=== PATIENT | female | born 1990 ===

== ENCOUNTER 2023-01-13 14:01 | Outpatient (OUT) | payer BC, SELFPAY ==
--- NOTE | 2023-01-13 | XR_ITS ---
The [address] [address] Patient Name: CLEMENTE HOLLAND MRN: [id number] date: 1990 Sex: F Assigned Patient Location: [facility] Current Patient Location: Accession/Order Number: [id number] Exam Date: 01/13/2023 14:28 Report Date: 01/14/2023 05:24 At the request of: GREGORIO BARR Procedure: XR foot JAMES min 3V EXAMINATION: XR foot JAMES min 3V HISTORY: LEFT FOOT PAIN COMPARISON: No relevant comparison available. FINDINGS: RIGHT FINDINGS: BONES: Normal. No significant arthropathy or acute abnormality. SOFT TISSUES: Negative. No visible soft tissue swelling. OTHER: Negative. LEFT FINDINGS: BONES: Normal. No significant arthropathy or acute abnormality. SOFT TISSUES: Negative. No visible soft tissue swelling. OTHER: Negative. IMPRESSION: RIGHT CONCLUSION: No acute abnormality LEFT CONCLUSION: No acute abnormality Electronically authenticated by: CHAD LUU Date: 01/14/2023 05:24
== END 2023-01-13 14:02 | disposition home or self-care (01) ==
LOC: RAD 14:02
PROVIDERS: Visit Provider Podiatrist Foot & Ankle Surgery
DX: M79.672 Pain in left foot (principal); M79.671 Pain in right foot
CPT/HCPCS: 73630